=== PATIENT | female | born 1955 ===

== ENCOUNTER 2018-03-13 12:28 | Emergency (ER) | payer OTHER ==
[2018-03-13 12:28] VITALS: BMI 29.2
[2018-03-13 12:42] VITALS: BP 148/88; PULSE 90; RESP 18; TEMP 98.2; O2SAT 100
--- NOTE | 2018-03-13 13:52 | C.PDOC ---
History Of Present Illness 62 year old female presents to the ED c/o left knee pain. Patient states she banged her left knee against the bathtub last Monday. Patient reports she has taken some OTC pain medications. Patient denies LOC, head injury, nausea, vomit , diarrhea, weakness, numbness. Time Seen by Provider: 03/13/18 13:13 Chief Complaint (Nursing): Lower Extremity Problem/Injury History Per: Patient History/Exam Limitations: no limitations Onset/Duration Of Symptoms: Days Current Symptoms Are (Timing): Still Present Recent travel outside of the [place]: No Additional History Per: Patient - Knee Description Of Injury: Struck Against Object Currently Unable To: Bend Or Move Alleviating Factor(s): OTC Pain Medication Past Medical History Reviewed: Historical Data, Nursing Documentation, Vital Signs Vital Signs: Last Vital Signs Temp 98.2 F 03/13/18 12:39 Pulse 90 03/13/18 12:39 Resp 18 03/13/18 12:39 BP 148/88 03/13/18 12:39 Pulse Ox 100 03/13/18 14:09 - Medical History PMH: Asthma, Colonic Polyps, Depression (NO MEDICATIONS), Gastritis, Gall Bladder Disease, HTN, Hypercholesterolemia Denies: Fractures Surgical History: Cholecystectomy, Endoscopy - [facility] Procedures ENDOSC POLYPECTOMY OF LG INTEST (11/11/14) ESOPHAGOGASTRODUODENOSCOPY [EGD] W/CLOSED BIOPSY (11/25/14) OTHER SKIN & SUBQ I D (03/31/14) TETANUS TOXOID ADMINIST (03/31/14) Family History: States: Unknown Family Hx - Social History Hx Tobacco Use: No Hx Alcohol Use: No Hx Substance Use: No - Immunization History Hx Tetanus Toxoid Vaccination: No Hx Influenza Vaccination: No Hx Pneumococcal Vaccination: No Review Of Systems Constitutional: Negative for: Fever, Chills Respiratory: Negative for: Cough, Shortness of Breath Musculoskeletal: Positive for: Leg Pain. Negative for: Back Pain Skin: Negative for: Rash Neurological: Negative for: Weakness, Numbness Physical Exam - Physical Exam Appears: Non-toxic, No Acute Distress Skin: Normal Color, Warm, Dry Head: Atraumatic, Normacephalic Eye(s): bilateral: Normal Inspection Extremity: Normal ROM, Tenderness (left knee medial aspect), Capillary Refill ( < 2 seconds), No Swelling Pulses: Left Dorsalis Pedis: Normal, Right Dorsalis Pedis: Normal Neurological/Psych: Oriented x3, Normal Speech, Normal Motor, Normal Sensation Gait: Steady (with a limp due to pain) ED Course And Treatment O2 Sat by Pulse Oximetry: 100 (ON RA) Pulse Ox Interpretation: Normal - Other Rad Left Knee X-Ray X-Ray: Read By Radiologist Interpretation: PROCEDURE: Left Knee Radiographs. HISTORY: Pain. COMPARISON : None. FINDINGS: BONES: Normal. No fracture. JOINTS: Normal. No osteoarthritis. JOINT EFFUSION: None. OTHER FINDINGS: None. IMPRESSION: Normal radiographs of the left knee. Medical Decision Making Medical Decision Making: Plan: * Tylenol 975 mg PO * Left knee X-Ray 1513 xray neg for fx, avni bandage applied, f/.u ortho Disposition Counseled Patient/Family Regarding: Studies Performed, Diagnosis, Need For Followup, Rx Given - Disposition Referrals: Quan Jacksno MD [Staff Provider] - Disposition: HOME/ ROUTINE Disposition Time: 15:14 Condition: GOOD Additional Instructions: Por favor, siga con el Dr. Jackson-ortopedia. [place] Tylenol, o ibuprofeno para el dolor. El fro se comprime a la rodilla 3-4 veces al da fiona 15 minutos a la vez. Use vendaje Avni para mayor comodidad. Prescriptions: Acetaminophen [Tylenol 325mg tab] 650 mg PO Q4 #50 tab Instructions: Knee Sprain (DC), Ligament Injuries in the Knee (DC) Forms: Gen Discharge Inst Maltese, [facility] (Maltese) - Clinical Impression Clinical Impression: Left knee injury - PA / NURSES SUPERINTENDENT / Resident Statement MD/DO has reviewed & agrees with the documentation as recorded. - Scribe Statement The provider has reviewed the documentation as recorded by the Scribe Pj Hernandez All medical record entries made by the Scribe were at my direction and personally dictated by me. I have reviewed the chart and agree that the record accurately reflects my personal performance of the history, physical exam, medical decision making, and the department course for this patient. I have also personally directed, reviewed, and agree with the discharge instructions and disposition.
--- NOTE | 2018-03-13 14:00 | RAD ---
PROCEDURE: Left Knee Radiographs. HISTORY: Pain. COMPARISON: None. FINDINGS: BONES: Normal. No fracture. JOINTS: Normal. No osteoarthritis. JOINT EFFUSION: None. OTHER FINDINGS: None. IMPRESSION: Normal radiographs of the left knee.
== END 2018-03-13 15:24 | disposition home or self-care (01) ==
LOC: C.ER 12:28
DX: S89.92XA Unspecified injury of left lower leg, initial encounter (principal); W22.8XXA Striking against or struck by other objects, initial encounter; E78.00 Pure hypercholesterolemia, unspecified; I10 Essential (primary) hypertension